=== PATIENT | female | born 1995 ===

== ENCOUNTER 2020-05-02 07:29 | Outpatient (CLI) | payer MEDICAID, SELFPAY ==
[2020-05-07 11:03] LABS: SARS-CoV-2 RNA Undetected (Undetected); SARS-CoV-2 Specimen Source Nasopharynx
== END 2020-05-02 07:49 ==
PROVIDERS: Visit Provider Physical Medicine & Rehabilitation Sports Medicine
DX: Z11.59 Encounter for screening for other viral diseases (principal)
CPT/HCPCS: U0003

== ENCOUNTER 2020-06-14 14:35 | Outpatient (REF) | payer MEDICAID, SELFPAY ==
[2020-06-17 14:06] LABS: SARS-CoV-2 RNA Undetected (Undetected); SARS-CoV-2 Specimen Source Nasopharynx
== END 2020-06-14 14:55 ==
LOC: NCHCN 14:35
PROVIDERS: Visit Provider Family Medicine
DX: Z20.828 Contact with and (suspected) exposure to other viral communicable diseases (principal)
CPT/HCPCS: U0003